=== PATIENT | male | born 1970 | race African-American/Black ===

== ENCOUNTER 2019-03-30 15:15 | Emergency (ER) | payer MEDICAID ==
[~2019-03-30] VITALS: Ht 188 cm; Wt 82.0 kg
[2019-03-30] MEDS ORDERED: IBUPROFEN 600MG TABLET PO STA (15:49)
[2019-03-30] MEDS ORDERED: SODIUM CHLORIDE 0.9% 1,000 ML IV ONE (15:49)
[2019-03-30] MEDS ORDERED: ACETAMINOPHEN 500MG TABLET PO ONE (16:00)
[2019-03-30 17:03] LABS: BASOPHILS % 0.7 % (0.0-2.0); EOSINOPHILS % 0.1 % (0.0-5.0); HEMOGLOBIN. 12.5 g/dL (14.0-18.0); LYMPHOCYTES % 7.9 % (20.0-50.0); MEAN CORPUSCULAR HEMOGLOBIN 26.1 pg (28.0-32.0); MEAN CORPUSCULAR VOLUME 79.6 fL (80.0-94.0); MEAN PLATELET VOLUME 7.6 fl (7.4-10.4); MONOCYTES % 4.9 % (2.0-8.0); NEUTROPHILS % 86.4 % (40.0-76.0); PLATELET 262 x1000/uL (130-400); RED BLOOD CELL COUNT 4.77 mill/uL (4.7-6.1); RED CELL DISTRIBUTION WIDTH 16.3 % (11.6-14.6)
[2019-03-30 17:11] LABS: CHLORIDE 98 mEq/L (98-107)
[2019-03-30] MEDS ORDERED: OSELTAMIVIR 75MG CAPSULE PO ONE (17:30)
[2019-03-30 17:45] VITALS: BP 123/78
== END 2019-03-30 18:00 | disposition home or self-care (01) ==
LOC: ER 15:15
DX: J10.1 Influenza due to other identified influenza virus with other respiratory manifestations (principal); F17.200 Nicotine dependence, unspecified, uncomplicated
CPT/HCPCS: 36415; 71045; 80053; 85025; 87804; 99284; J7030

== ENCOUNTER 2020-11-22 23:46 | Inpatient (IN) | payer MEDICAID, OTHER ==
[~2020-11-22] VITALS: Ht 182.9 cm; Wt 53.1 kg
[2020-11-23] VITALS (18 sets, daily range): BP systolic 137–158; BP diastolic 88–112
[2020-11-23 00:30] LABS: EOSINOPHILS % 1.4 % (0.0-5.0); HEMATOCRIT. 37.8 % (42.0-52.0); HEMOGLOBIN. 12.7 g/dL (14.0-18.0); MEAN CORPUSCULAR HEMOGLOBIN 27.5 pg (28.0-32.0); MEAN CORPUSCULAR VOLUME 82.1 fL (80.0-94.0); MONOCYTES % 6.4 % (2.0-8.0); NEUTROPHILS % 69.2 % (40.0-76.0); PLATELET 349 x1000/uL (130-400); RED BLOOD CELL COUNT 4.61 mill/uL (4.7-6.1); RED CELL DISTRIBUTION WIDTH 17.4 % (11.6-14.6)
[2020-11-23 00:40] LABS: ETHANOL BLOOD < 10 mg/dL
[2020-11-23 00:41] LABS: CHLORIDE 108 mEq/L (98-107)
[2020-11-23 00:43] LABS: LDL CHOLESTEROL 76 mg/dL (5-100)
[2020-11-23] MEDS ORDERED: ALTEPLASE 100MG/VIAL IV NR (00:45)
[2020-11-23] MEDS ORDERED: CONTAINER EMPTY IV NR (01:00)
[2020-11-23] MEDS ORDERED: ATORVASTATIN CALCIUM 40MG TABLET PO NR (01:00)
[2020-11-23] MEDS ORDERED: ALTEPLASE IV NR (01:00)
[2020-11-23] MEDS ORDERED: *NO ASPIRIN X 24 HOURS XX SCH (01:15)
[2020-11-23 01:22] LABS: INR 1.1; PROTHROMBIN TIME 11.5 sec (9.6-11.0)
[2020-11-23] MEDS ORDERED: IOHEXOL-350 100 ML BOTTLE ONE (02:03)
[2020-11-23 03:20] LABS: CLARITY URINE CLEAR (CLEAR); COLOR URINE YELLOW (YELLOW); KETONES URINE NEGATIVE (NEGATIVE); LEUKOCYTE ESTERASE URINE NEGATIVE (NEGATIVE); NITRITE URINE NEGATIVE (NEGATIVE); OCCULT BLOOD URINE NEGATIVE (NEGATIVE); PROTEIN URINE NEGATIVE (NEGATIVE); SPECIFIC GRAVITY URINE 1.076 (1.005-1.030)
[2020-11-23 03:49] LABS: *BARBITURATES SCREEN URINE NEGATIVE (NEGATIVE); CANNABINOID URINE SCREEN NEGATIVE (NEGATIVE); OPIATES URINE SCREEN NEGATIVE (NEGATIVE); PHENCYCLIDINE URINE SCREEN NEGATIVE (NEGATIVE)
[2020-11-23 03:51] LABS: *AMPHETAMINES SCREEN URINE NEGATIVE (NEGATIVE); *BENZODIAZEPINES SCREEN URINE NEGATIVE (NEGATIVE); *COCAINE SCREEN URINE NEGATIVE (NEGATIVE); METHADONE URINE SCREEN NEGATIVE (NEGATIVE)
[2020-11-23] MEDS ORDERED: ONDANSETRON HCL 4MG/2ML INJ IV PRN (17:00)
[2020-11-23] MEDS ORDERED: POTASSIUM CHLORIDE 20MEQ TABLET SR PO NR (17:00)
[2020-11-23] MEDS ORDERED: ACETAMINOPHEN 325MG TABLET PO PRN (17:00)
[2020-11-23] MEDS: ATORVASTATIN CALCIUM 40MG TABLET PO SCH (22:11)
[2020-11-24] VITALS (46 sets, daily range): BP systolic 113–168; BP diastolic 75–109
[2020-11-24] MEDS ORDERED: HYDRALAZINE 20MG/ML VIAL IV NR (02:30)
[2020-11-24 06:32] LABS: EOSINOPHILS % 1.8 % (0.0-5.0); HEMOGLOBIN. 15.1 g/dL (14.0-18.0); LYMPHOCYTES % 18.1 % (20.0-50.0); MEAN CORPUSCULAR HEMOGLOBIN 27.1 pg (28.0-32.0); MEAN CORPUSCULAR VOLUME 82.7 fL (80.0-94.0); MEAN PLATELET VOLUME 7.7 fl (7.4-10.4); MONOCYTES % 7.9 % (2.0-8.0); NEUTROPHILS % 71.2 % (40.0-76.0); PLATELET 356 x1000/uL (130-400); RED BLOOD CELL COUNT 5.56 mill/uL (4.7-6.1)
[2020-11-24] MEDS: CLOPIDOGREL 75MG TABLET PO SCH (17:10)
[2020-11-24] MEDS: ASPIRIN 81MG TABLET PO SCH (17:10)
[2020-11-24] MEDS: ATORVASTATIN CALCIUM 40MG TABLET PO SCH (21:50)
[2020-11-25] VITALS (12 sets, daily range): BP systolic 117–154; BP diastolic 55–106
[2020-11-25] MEDS: CLOPIDOGREL 75MG TABLET PO SCH (09:06)
[2020-11-25] MEDS: ASPIRIN 81MG TABLET PO SCH (09:06)
[2020-11-25] MEDS ORDERED: CLONIDINE 0.1MG TABLET PO PRN (13:15)
[2020-11-25] MEDS: ATORVASTATIN CALCIUM 40MG TABLET PO SCH (20:27)
[2020-11-26] VITALS (10 sets, daily range): BP systolic 119–147; BP diastolic 79–98
[2020-11-26 07:15] LABS: EOSINOPHILS % 2.3 % (0.0-5.0); HEMATOCRIT. 43.2 % (42.0-52.0); HEMOGLOBIN. 14.3 g/dL (14.0-18.0); LYMPHOCYTES % 30.4 % (20.0-50.0); MEAN CORPUSCULAR HEMOGLOBIN 27.5 pg (28.0-32.0); MEAN CORPUSCULAR VOLUME 83.1 fL (80.0-94.0); MEAN PLATELET VOLUME 7.8 fl (7.4-10.4); MONOCYTES % 7.3 % (2.0-8.0); PLATELET 336 x1000/uL (130-400); RED CELL DISTRIBUTION WIDTH 16.8 % (11.6-14.6)
[2020-11-26 07:23] LABS: CHLORIDE 108 mEq/L (98-107)
[2020-11-26] MEDS: ASPIRIN 81MG TABLET PO SCH (08:58)
[2020-11-26] MEDS: CLOPIDOGREL 75MG TABLET PO SCH (08:58)
[2020-11-26] MEDS ORDERED: CLOP75TA15 PO (12:48)
[2020-11-26] MEDS ORDERED: LIP40 PO (12:48)
[2020-11-26] MEDS ORDERED: ASPI-1160 PO (12:48)
== END 2020-11-26 22:02 | disposition home health service (06) | DRG 45 ==
LOC: ER 23:46 → CVICU 11-23 01:27 → EDBEDREQTM 11-23 01:29 → EDBEDREQSVC 11-23 01:29 → EDBEDREQDT 11-23 01:29 → EDBEDREQ 11-23 01:29 → ENRESERV 11-23 15:48 → CANBEDREQ 11-23 22:15 → 5EST 11-24 12:31
PROVIDERS: ADMIT Internal Medicine; ATTEND Internal Medicine
DX: I63.9 Cerebral infarction, unspecified (principal); E43 Unspecified severe protein-calorie malnutrition; E87.8 Other disorders of electrolyte and fluid balance, not elsewhere classified; D64.9 Anemia, unspecified; I10 Essential (primary) hypertension; E87.6 Hypokalemia; R47.01 Aphasia; Z20.822 Contact with and (suspected) exposure to COVID-19; Z82.49 Family history of ischemic heart disease and other diseases of the circulatory system; Z68.1 Body mass index [BMI] 19.9 or less, adult
CPT/HCPCS: 36415; 70496; 70498; 70551; 71045; 80048; 80053; 80305; 80320; 81003; 83721; 84484; 85025; 87426; 92610; 93005; 95816; 97162; 97166; 99291; J0360; J2997; J7060; Q9967; G0480

== ENCOUNTER 2021-01-11 14:49 | Inpatient (IN) | payer OTHER ==
[~2021-01-11] VITALS: Ht 172.7 cm; Wt 62.4 kg
[~2021-01-11 14:49] MED LIST: ASPI-1160 PO; CLOP75TA15 PO; LIP40 PO
[2021-01-11 15:21] LABS: BASOPHILS % 1.1 % (0.0-2.0); EOSINOPHILS % 2.2 % (0.0-5.0); HEMATOCRIT. 36.5 % (42.0-52.0); HEMOGLOBIN. 11.9 g/dL (14.0-18.0); LYMPHOCYTES % 16.9 % (20.0-50.0); MEAN CORPUSCULAR HEMOGLOBIN 27.8 pg (28.0-32.0); MEAN CORPUSCULAR VOLUME 85.1 fL (80.0-94.0); MONOCYTES % 6.2 % (2.0-8.0); NEUTROPHILS % 73.6 % (40.0-76.0); PLATELET 339 x1000/uL (130-400); RED BLOOD CELL COUNT 4.28 mill/uL (4.7-6.1); RED CELL DISTRIBUTION WIDTH 16.1 % (11.6-14.6)
[2021-01-11 15:31] LABS: PROTHROMBIN TIME 10.8 sec (9.6-11.0)
[2021-01-11 15:33] LABS: CHLORIDE 111 mEq/L (98-107)
[2021-01-11 15:37] LABS: ETHANOL BLOOD < 10 mg/dL
[2021-01-11] MEDS ORDERED: ASPIRIN 325MG EC TABLET PO ONE (19:15)
[2021-01-11 22:05] VITALS: BP 136/92
[2021-01-11 22:22] LABS: CLARITY URINE CLEAR (CLEAR); COLOR URINE YELLOW (YELLOW); KETONES URINE NEGATIVE (NEGATIVE); LEUKOCYTE ESTERASE URINE NEGATIVE (NEGATIVE); NITRITE URINE NEGATIVE (NEGATIVE); OCCULT BLOOD URINE NEGATIVE (NEGATIVE); PH URINE 7.5 (4.5-8.0); PROTEIN URINE NEGATIVE (NEGATIVE); SPECIFIC GRAVITY URINE 1.008 (1.005-1.030)
[2021-01-11 22:40] LABS: *AMPHETAMINES SCREEN URINE PRESUMTIVE POSITIVE (NEGATIVE); *BARBITURATES SCREEN URINE NEGATIVE (NEGATIVE); *COCAINE SCREEN URINE NEGATIVE (NEGATIVE)
[2021-01-11 22:41] LABS: *BENZODIAZEPINES SCREEN URINE NEGATIVE (NEGATIVE); CANNABINOID URINE SCREEN NEGATIVE (NEGATIVE); METHADONE URINE SCREEN NEGATIVE (NEGATIVE); OPIATES URINE SCREEN NEGATIVE (NEGATIVE); PHENCYCLIDINE URINE SCREEN NEGATIVE (NEGATIVE)
[2021-01-12] VITALS (10 sets, daily range): BP systolic 85–144; BP diastolic 66–97
[2021-01-12] MEDS ORDERED: HYDROCODONE/ACETAMINOPHEN 5/325MG TABLET PO PRN (01:00)
[2021-01-12] MEDS ORDERED: KCL 20MEQ/100ML PREMIX 100 ML IV SCH (01:00)
[2021-01-12] MEDS ORDERED: ONDANSETRON HCL 4MG/2ML INJ IV PRN (10:30)
[2021-01-12] MEDS ORDERED: ACETAMINOPHEN 325MG TABLET PO PRN (10:30)
[2021-01-12] MEDS ORDERED: NALOXONE HCL 0.4MG/ML VIAL IV PRN (10:30)
[2021-01-12] MEDS ORDERED: DEXTROSE 50% WATER 50ML SYRINGE IV SCH (11:30)
[2021-01-12] MEDS: DEXT 5%/0.9% NACL 1,000 ML IV SCH (13:26)
[2021-01-12 17:36] LABS: T4 FREE 1.08 ng/dL (0.76-1.46)
[2021-01-12] MEDS: ATORVASTATIN CALCIUM 40MG TABLET PO SCH (21:51)
[2021-01-13] VITALS (12 sets, daily range): BP systolic 124–145; BP diastolic 77–102
[2021-01-13] MEDS: DEXT 5%/0.9% NACL 1,000 ML IV SCH (09:52)
[2021-01-13] MEDS: ASPIRIN 81MG TABLET PO SCH (09:52)
[2021-01-13 09:54] LABS: BASOPHILS % 1.3 % (0.0-2.0); EOSINOPHILS % 2.5 % (0.0-5.0); LYMPHOCYTES % 20.9 % (20.0-50.0); MEAN CORPUSCULAR VOLUME 85.3 fL (80.0-94.0); MEAN PLATELET VOLUME 7.3 fl (7.4-10.4); MONOCYTES % 8.5 % (2.0-8.0); NEUTROPHILS % 66.8 % (40.0-76.0); PLATELET 339 x1000/uL (130-400); RED BLOOD CELL COUNT 4.93 mill/uL (4.7-6.1); RED CELL DISTRIBUTION WIDTH 16.5 % (11.6-14.6)
[2021-01-13 09:56] LABS: HEMOGLOBIN. 13.8 g/dL (14.0-18.0)
[2021-01-13 10:10] LABS: CHLORIDE 111 mEq/L (98-107)
[2021-01-13] MEDS ORDERED: DEXTROSE 50% WATER 50ML SYRINGE IV NR (13:15)
[2021-01-13] MEDS ORDERED: DEXTROSE 50% WATER 50ML SYRINGE IV PRN (22:30)
[2021-01-13] MEDS: ATORVASTATIN CALCIUM 40MG TABLET PO SCH (22:45)
[2021-01-14] VITALS (8 sets, daily range): BP systolic 117–129; BP diastolic 61–92
[2021-01-14] MEDS: DEXT 5%/0.9% NACL 1,000 ML IV SCH (04:58)
[2021-01-14] MEDS: BLOOD SUGAR DIAGNOSTIC STRIP TEST SCH ×2 (06:30→12:11)
[2021-01-14] MEDS: INSULIN LISPRO 100 UNITS/ML SUBCUT SCH ×2 (07:20→12:11)
[2021-01-14] MEDS: ASPIRIN 81MG TABLET PO SCH (09:22)
== END 2021-01-14 15:40 | disposition home or self-care (01) | DRG 52 ==
LOC: ER 14:49 → 6WST 19:50 → ENRESERV 20:39 → 3WST 01-12 13:05
PROVIDERS: ADMIT Internal Medicine; ATTEND Internal Medicine
DX: G92.9 Unspecified toxic encephalopathy (principal); J96.01 Acute respiratory failure with hypoxia; E44.0 Moderate protein-calorie malnutrition; E11.649 Type 2 diabetes mellitus with hypoglycemia without coma; E87.8 Other disorders of electrolyte and fluid balance, not elsewhere classified; E78.00 Pure hypercholesterolemia, unspecified; G45.9 Transient cerebral ischemic attack, unspecified; F15.10 Other stimulant abuse, uncomplicated; I10 Essential (primary) hypertension; D64.9 Anemia, unspecified; I69.351 Hemiplegia and hemiparesis following cerebral infarction affecting right dominant side; I69.320 Aphasia following cerebral infarction; Z82.49 Family history of ischemic heart disease and other diseases of the circulatory system; Z68.20 Body mass index [BMI] 20.0-20.9, adult; Z91.09 Other allergy status, other than to drugs and biological substances; Z91.018 Allergy to other foods; Z79.82 Long term (current) use of aspirin; Z79.899 Other long term (current) drug therapy; Z71.51 Drug abuse counseling and surveillance of drug abuser
CPT/HCPCS: 36415; 70544; 70553; 71045; 80048; 80053; 80061; 80305; 80307; 80320; 80329; 81003; 82140; 82607; 82746; 82962; 83036; 83880; 84439; 84443; 84481; 84484; 85025; 93306; 99285; J3480; J7042; G0480